=== PATIENT | female | born 1960 | race African-American/Black ===

== ENCOUNTER 2020-12-17 16:29 | Emergency (ER) | payer SELFPAY ==
[~2020-12-17] VITALS: Ht 172.7 cm; Wt 93.0 kg
[2020-12-17 16:40] VITALS: BP 161/86
[2020-12-17] MEDS ORDERED: ACETAMINOPHEN 325MG TABLET PO ONE (17:00)
[2020-12-17] MEDS ORDERED: IBUP-2029 MT (17:54)
== END 2020-12-17 18:39 | disposition home or self-care (01) ==
LOC: ER 16:29
DX: S90.01XA Contusion of right ankle, initial encounter (principal); S90.31XA Contusion of right foot, initial encounter; E78.00 Pure hypercholesterolemia, unspecified; I10 Essential (primary) hypertension; W50.2XXA Accidental twist by another person, initial encounter; Y93.89 Activity, other specified; Y92.89 Other specified places as the place of occurrence of the external cause; Y99.8 Other external cause status
CPT/HCPCS: 73610; 73630; 99284

== ENCOUNTER 2020-12-20 16:06 | Emergency (ER) | payer SELFPAY ==
[~2020-12-20] VITALS: Ht 172.7 cm; Wt 91.0 kg
[~2020-12-20 16:06] MED LIST: IBUP-2029 MT
[2020-12-20] MEDS ORDERED: KETOROLAC 60MG/2ML VIAL IM ONE (17:45)
[2020-12-20 20:00] VITALS: BP 144/78
== END 2020-12-20 20:04 | disposition home or self-care (01) ==
LOC: ER 16:06
DX: S93.492A Sprain of other ligament of left ankle, initial encounter (principal); I10 Essential (primary) hypertension; E78.00 Pure hypercholesterolemia, unspecified; X50.1XXA Overexertion from prolonged static or awkward postures, initial encounter; Y93.89 Activity, other specified; Y92.018 Other place in single-family (private) house as the place of occurrence of the external cause
CPT/HCPCS: 73610; 73630; 96372; 99284; J1885